=== PATIENT | male | born 1985 | race American Indian/Alaskan Native ===

== ENCOUNTER 2018-03-04 01:54 | Emergency (ER) | payer SELFPAY ==
[2018-03-04 02:04] VITALS: BP 126/79
[2018-03-04] MEDS ORDERED: TORADOL IM ONE (02:46)
[2018-03-04] MEDS ORDERED: TYLENOL #3 PO ONE (02:46)
[2018-03-04] MEDS ORDERED: TRIMOX PO ONE (02:46)
--- NOTE | 2018-03-04 02:53 | Emergency Department Report ---
HPI - General Chief Complaint: Earache Time Seen by Provider: 03/04/18 02:46 - HPI HPI: The patient is a 33-year-old male presents for evaluation of right ear pain. The patient reports constant and severe right ear pain, throbbing in quality, present for the past one day. He shares that he went swimming one day ago. He admits to intermittent drainage from the right ear. He denies fever, trauma to the ear or head, headache, scalp pain posterior to the ear, sore throat, cough, neck pain, taste changes, facial paresthesia or facial drooping, or other focal neuro deficit. ED Past Medical Hx - Past Medical History Previous Medical History?: No - Surgical History Past Surgical History?: No - Social History Smoking Status: Never Smoker Substance Use Type: None - Medications Home Medications: Home Medications Medication Instructions Recorded Confirmed Last Taken Type Acetaminophen/Codeine [Tylenol #3] 1 tab PO Q6H PRN #10 tab 03/04/18 Unknown Rx Ciprofloxacin HCl [Ciprofloxacin 500 mg PO BID #20 tablet 03/04/18 Unknown Rx TAB] Ibuprofen [Motrin] 800 mg PO Q8HR PRN #15 tablet 03/04/18 Unknown Rx Ofloxacin 0.3% [Floxin Otic] 10 drop OT QDAY 7 Days #1 bottle 03/04/18 Unknown Rx ED Review of Systems ROS: Stated complaint: RIGHT EAR PAIN Other details as noted in HPI Constitutional: denies: fever ENT: reports ear pain denies: throat or neck pain Respiratory: denies: cough, shortness of breath Cardiovascular: denies: chest pain Endocrine: denies unexplained weight loss or gain Gastrointestinal: denies: abdominal pain, nausea Genitourinary: denies: dysuria Musculoskeletal: denies: leg swelling Skin: denies: rash Neurological: denies: headache Hematological/Lymphatic: denies: easy bleeding or easy bruising Psych: denies sadness or hopelessness Physical Exam - Physical Exam Vital Signs: Vital Signs 03/04/18 01:57 Temperature 98.5 F Pulse Rate 68 Respiratory 18 Rate Blood Pressure 126/79 O2 Sat by Pulse 100 Oximetry Physical Exam: General: well-nourished, well-developed, no acute distress Head: Normocephalic, atraumatic Eyes: normal sclera ENT: Erythema of the right tympanic membrane in the ear canal present, mild clear drainage from the right ear present, no purulent drainage or discharge, tympanic membranes intact, no redness or fluctuance overlying the right mastoid Neck: trachea midline, neck supple, No neck stiffness, no cervical adenopathy Respiratory: Breath sounds equal bilaterally, no wheezing, rales, or rhonchi Cardio: S1 and S2 present, no murmurs, rubs, gallops, capillary refill is brisk Musc: No pitting edema Skin: No rash Neuro: no facial drooping, normal speech Psych: Normal affect ED Course Vital Signs 03/04/18 01:57 Temperature 98.5 F Pulse Rate 68 Respiratory 18 Rate Blood Pressure 126/79 O2 Sat by Pulse 100 Oximetry ED Medical Decision Making - Medical Decision Making The patient seen and examined by myself. Findings on exam are consistent with right otitis externa. The patient is given pain medicine. The patient is given prescriptions for ofloxacin drops and ciprofloxacin tablets. The patient was reevaluated and reported that their symptoms were markedly improved. The patient is stable for discharge with outpatient follow-up. The patient is given follow-up and return instructions, including to follow with geophysical observer within the next 2 days. The patient expressed understanding and agreed with the plan. The patient is discharged in stable condition. Critical care attestation.: If time is entered above; I have spent that time in minutes in the direct care of this critically ill patient, excluding procedure time. ED Disposition Clinical Impression: Right acute suppurative otitis media, Acute pain of right ear Disposition: - TO HOME OR SELFCARE Is pt being admited?: No Does the pt Need Aspirin: No Condition: Stable Instructions: Otitis Externa (ED), Otitis Media (ED) Referrals: [facility] [Outside] - 3-5 Days Time of Disposition: 02:47
== END 2018-03-04 08:35 | disposition home or self-care (01) ==
LOC: ED 01:54
DX: H66.001 Acute suppurative otitis media without spontaneous rupture of ear drum, right ear (principal)
CPT/HCPCS: 96372; 99282; J1885